=== PATIENT | female | born 1970 | race African-American/Black ===

== ENCOUNTER 2024-05-11 08:26 | Outpatient (AMB) | payer MEDICAID, SELFPAY ==
--- NOTE | 2024-05-11 08:38 | MHC.OFFWIV ---
Intake Vital Signs 05/11/24 08:41 Height 5 ft 3 in Weight 251 lb BMI 44.5 BP 132/80 Blood Pressure Location Lt brachial Position Sitting Pulse 63 Pulse Source Pulse Oximeter Pulse Oximetry (%) 98 Oxygen Delivery Method Room Air Intake Visit Reasons: EP rt leg pain Intake Note: Pt is here today c/o Rt under foot pain x3days no injury noted Allergies No Known Allergies Allergy (Verified 05/11/24 08:41) HPI HPI Comments History of Present Illness Details Patient is a 54-year-old female complaining of right heel pain that started 3 days ago. She denies any injury. She said she has been taking 200 mg of ibuprofen every 4 hours with no relief. She states she can walk on it but it is difficult because it is painful. She states she does not have any new shoes that she is wearing, she denies walking on the beach recently or walking excessively in shoes with no support such as flip flops. She has not tried ice or tried wrapping it. Review of Systems Const All systems reviewed & are unremarkable except as noted in HPI and below Physical Exam Vital Signs: Last Vital Signs Pulse 63 05/11/24 08:41 BP 132/80 05/11/24 08:41 Pulse Ox 98 05/11/24 08:41 Oxygen Delivery Method Room Air 05/11/24 08:41 BMI result Body Mass Index 44.5 Const General: cooperative, healthy appearing, comfortable, no acute distress and well developed Orientation/consciousness: patient oriented x3 Limitations: no limitations HEENT Head: Yes normal to inspection Eyes General: appearance normal, both eyes and all related structures Neck Neck: Yes normal visual inspection and Yes full ROM Resp Effort & Inspection: normal respiratory effort and able to speak in complete sentences Skin General skin exam: no rashes or lesions noted Neuro General: patient oriented x3 Extrem General: Yes normal to inspection Right lower extremity: normal to inspection, full ROM, normal capillary refill and foot (5/5 strength, sensation intact) Details: tenderness Location: of the calcaneus Details: with squeeze and of the mid foot Location: along the plantar surface; not of the base of the 5th metatarsal, toes with normal ROM and vascular exam Details: normal capillary refill; no unusual warmth, edema noted, no abrasion, no laceration and no ecchymosis; no edema and joint enlargement noted Left lower extremity: normal to inspection Assessment & Plan Assessment & Plan (1) Pain of right heel: Code(s): M79.671 - Pain in right foot Plan: Physical exam is unremarkable however patient has a limping gait and tenderness to the bottom of her right foot so we will get an x-ray to rule out a stress fracture. Wrapped right foot with an Tommy bandage, recommended RICE. Patient does not have a primary care doctor at this time. If pain does not improve, she should return for an ortho referral. Plan see above Orders: Orders XR foot RT min 3V Today M79.671 - Pain in right foot Coding Level of Care Code Est Pt Level 4 (98841) Diagnoses Pain of right heel M79.671
[2024-05-11 08:41] VITALS: BP 132/80; PULSE 63; O2SAT 98; BMI 44.5
== END 2024-05-11 10:06 | disposition home or self-care (01) ==
PROVIDERS: Visit Provider Physician Assistant
DX: M79.671 Pain in right foot (principal)
CPT/HCPCS: 99214

== ENCOUNTER 2024-05-11 09:17 | Outpatient (REF) | payer MEDICAID, SELFPAY ==
--- NOTE | ~2024-05-11 | XR_ITS ---
EXAMINATION: XR FOOT, RIGHT CLINICAL INFORMATION: Pain COMPARISON: None available. TECHNIQUE: AP, lateral, and oblique views of the right foot. FINDINGS: There is a healing nondisplaced fracture of the proximal phalanx of the fourth toe. No acute fracture or dislocation. Bone alignment is normal. Joint spaces are normal. There are small calcaneal spurs. There is soft tissue calcification over the medial lower leg. XR/XR foot RT min 3V IMPRESSION: Healing right fourth proximal phalanx fracture. Calcaneal spurs.
== END 2024-05-11 09:18 | disposition home or self-care (01) ==
LOC: HO.HMGCX 09:17
PROVIDERS: Visit Provider Physician Assistant
DX: M79.671 Pain in right foot (principal)
CPT/HCPCS: 73630

== ENCOUNTER → 2024-05-18 07:53 | Outpatient (BNVA) | payer MEDICAID, SELFPAY | PROVIDERS: Visit Provider Physician Assistant Surgical ==

== ENCOUNTER 2024-06-21 10:19 | Outpatient (AMB) | payer OTHER, SELFPAY ==
--- NOTE | 2024-06-21 09:57 | A.OFFVIS_ITS ---
VS Expanded 06/21/24 10:12 Height 5 ft 3 in Weight 255 lb BMI 45.2 Intake Visit Reasons: tele CLOTHES MODEL SWL BMI 43.6 Automotive Alignment Specialist Required: Yes Automotive Alignment Specialist Name: office cmi Allergies No Known Allergies Allergy (Verified 05/18/24 08:39) Medication List - Last Reconciled 06/21/24 by CALI Ruiz hydrochlorothiazide 12.5 mg PO DAILY lisinopril 10 mg PO DAILY HPI Comments Details: Pt is here to start the [facility] [place] Weight Management surgical weight loss program. She heard about our program from her daughter. Her goal is to lose weight and achieve a healthy lifestyle as well as to improve, if not resolve, obesity related medical conditions, including htn, gagan. She reports first being concerned about her weight 30 years, highest weight to date was 320. Current weight is 255 pounds with a BMI of 45.2. She has tried multiple methods of weight loss including fad diets without permanent results. She lives with her daughter. She does not work. She wakes at:?5 am, and goes to bed at?9 pm. Dinner is at 7 pm. Breakfast: egss ham bread AM snack: coffee and crackers or Rastafari bar Lunch: rice beans meat PM snack: coffee, bread Dinner: rice beans mashed potato meat After dinner: skip Other snacks: candy Liquids: 48 oz water, 24 oz coke daily, 8 oz apple juice Alcohol/marijuana/tobacco intake: no etoh, cannabis. Smokes 2 cigarettes daily Exercise: walk outside daily GERD score: 18 OSCAR score: 2 ESS score: 17 QOL score: 143 PFSH Surgical History Hx of tubal ligation Family History Family/Other No problems noted. Social History Alcohol intake: current Alcohol intake frequency: holidays/special occasions only Patient Tobacco Use Status: Current everyday Tobacco user Cigarettes Per Day: 4 Physical Exam Vital Signs: BMI result Body Mass Index 45.2 Telehealth Telehealth Telehealth Platform: Telephone Location of provider rendering services: practice address Location of patient: address on file Patient Identification confirmed using: Name, : Yes Telehealth method: voice only Patient verbally consented to treatment: Yes Patient verbally consented to billing insurance company: Yes Patient informed of any privacy concerns related to visit: Yes Minutes spent on Phone/Video with Pt.: 30 Assessment & Plan Assessment & Plan (1) Morbid obesity: Code(s): E66.01 - Morbid (severe) obesity due to excess calories Category: Medical Plan: This is a?54 yo female who will start our SWL program to prepare for bariatric surgery.? Blood work, CXR, ECG, Abd US and UGI have been ordered. She is being scheduled for initial consultations. She will start SWL classes and watch the first three videos before her next appointment. ? Based on getting up at 5 am and going to bed at 9 pm. ? Purchase body composition analyzer scale (Jack Robieo recommended) and check weight weekly. The best time to do this is first thing in the morning after going to the bathroom. 1. Nutritional counseling: Be sure to careful read the number of scoops per shake Start with 2 Pure protein shakes (Use the protein powder not the one in the carton already made), (1/2 scoop in 8 oz unsweetened almond milk) at 6am-8am, 10am-12pm 1 protein bar ([employer] bars at [facility] [place] [employer] shop, [employer], [employer]) at 2pm-4pm. Dinner at 6pm (8 forks of protein and 8 forks of salad/vegetables). Meal to include lean meat (beef, fish, pork, turkey, chicken), cooked vegetables or a salad with olive oil and/or fruits (berries, pears, apples, kiwi). Avoid salt, breads, potatoes, rice, pasta, desserts. Another shake with 1/2 scoop in 8 oz unsweetened almond milk at 7pm-9pm. Try to drink 64 oz of water daily and avoid soda and juices. ?2. Each shake would be drunk slowly, like coffee in a period of 2 hours. ?3. Cut each bar in 4 pieces and eat each piece in 30 min ?to make each bar last 2 hours. ?4. I emphasized the importance of measuring accurately the food portion and measure it carefully when serving the food on the plate ?5. The meal portions include 8 full-size forks of meat and 8 full-size forks of salad. You always eat the meat portion but you can replace up to half of the forks of salad/vegetables with rice, potatoes or pasta, or a fruit ?if you like. The less you do it the better weight loss will be. ?6. One full-size fork is what can be scooped on the fork without falling aside and not what can be bit with the fork. Use regular forks like those you find in a typical restaurant. ?7.? Please send me weight measurements as soon as possible and then once a week. Always include your diet and exercise plan. Alternatively come weekly at the office for weight checks and send me the measurements. ?8. Exercise counseling: Begin by watching a stretching for beginners video. Start slowly and begin to stretch your muscles. You should do this before and after each exercise session to prevent injury. Please join [employer] gym near your home. Ask the resident care manager rn or one of the trainers how to use the machines if you are unfamiliar with them. Start elliptical with a resistance of 2. Increase resistance by 1 every 3 min to your most comfortable resistance with a max resistance of 8. Reduce the resistance by 1 every 3 minutes back down to 2 and repeat cycles for 300 calories. Alternatively, start treadmill with a speed of 3.0 and incline of 0, increasing incline by 1 every 3 minutes to the highest comfortable level (max 6 for now) then decrease in the same fashion. Repeat pr ocess to a goal of 300 calories. Goal of 2000 calories burned or more weekly. You may also consider use of the stationary bike. The easiest would be to chose the fat-burn or interval training program on the machine and do this until you reach the 300 calorie goal. Alternatively, you can manually adjust the resistance in a similar fashion as mentioned above, (resistance of 2-8 with a goal speed of 12 mph). Tracking calories is essential. 9. Alternatively start walking outside daily, tracking calories with a goal of 300 calories per day, daily. You can download the [employer] which can track your time, distance and calories while walking outside. You press start in the ankita when you start and then stop when you are finished. 10.? It is important to communicate by text weekly with your weight and if you are having any problems with the plans. 11. Please get labs, EKG and chest X-Ray within 1 week. 12. Please follow the diet plan exactly, without any change. If you do not like something about the plan or you feel hungry, you need to communicate with me so I can help you revise the plan. You should not change the plan yourself. Text me at [phone] 13. Goal is to lose at least 12 pounds in the first month 14. Goal is to lose 10% of your weight before surgery, which is about 25 lbs. Ultimate weight goal: 230 lbs before surgery Patient is morbidly obese and is not considered stable at this time.?I spent a total of 70 minutes reviewing/updating records, examining the patient and counseling the patient on weight management as detailed above. Orders: Orders Hemoglobin A1c Today E66.01 - Morbid (severe) obesity due to excess calories, G47.33 - Obstructive sleep apnea (adult) (pediatric), I10 - Essential (primary) hypertension H Pylori Breath Test Today E66.01 - Morbid (severe) obesity due to excess calories, G47.33 - Obstructive sleep apnea (adult) (pediatric), I10 - Essential (primary) hypertension Comprehensive Met. Panel Today E66.01 - Morbid (severe) obesity due to excess calories, G47.33 - Obstructive sleep apnea (adult) (pediatric), I10 - Essential (primary) hypertension C Reactive Protein Today E66.01 - Morbid (severe) obesity due to excess calories, G47.33 - Obstructive sleep apnea (adult) (pediatric), I10 - Essential (primary) hypertension Vitamin A Today E66.01 - Morbid (severe) obesity due to excess calories, G47.33 - Obstructive sleep apnea (adult) (pediatric), I10 - Essential (primary) hypertension Ferritin Today E66.01 - Morbid (severe) obesity due to excess calories, G47.33 - Obstructive sleep apnea (adult) (pediatric), I10 - Essential (primary) hypertension US abdomen comp w elastography Today E66.01 - Morbid (severe) obesity due to excess calories, G47.33 - Obstructive sleep apnea (adult) (pediatric), I10 - Essential (primary) hypertension FL upper GI w air Today E66.01 - Morbid (severe) obesity due to excess calories, G47.33 - Obstructive sleep apnea (adult) (pediatric), I10 - Essential (primary) hypertension Insulin Today E66.01 - Morbid (severe) obesity due to excess calories, G47.33 - Obstructive sleep apnea (adult) (pediatric), I10 - Essential (primary) hypertension Complete Blood Count Auto Diff Today E66.01 - Morbid (severe) obesity due to excess calories, G47.33 - Obstructive sleep apnea (adult) (pediatric), I10 - Essential (primary) hypertension Lipid Panel Today E66.01 - Morbid (severe) obesity due to excess calories, G47.33 - Obstructive sleep apnea (adult) (pediatric), I10 - Essential (primary) hypertension IRON PROFILE Today E66.01 - Morbid (severe) obesity due to excess calories, G47.33 - Obstructive sleep apnea (adult) (pediatric), I10 - Essential (primary) hypertension Vitamin B12 and Folate Today E66.01 - Morbid (severe) obesity due to excess calories, G47.33 - Obstructive sleep apnea (adult) (pediatric), I10 - Essential (primary) hypertension Zinc Today E66.01 - Morbid (severe) obesity due to excess calories, G47.33 - Obstructive sleep apnea (adult) (pediatric), I10 - Essential (primary) hypertension Vitamin B1 Today E66.01 - Morbid (severe) obesity due to excess calories, G47.33 - Obstructive sleep apnea (adult) (pediatric), I10 - Essential (primary) hypertension TSH reflex Free T4 Today E66.01 - Morbid (severe) obesity due to excess calories, G47.33 - Obstructive sleep apnea (adult) (pediatric), I10 - Essential (primary) hypertension Vitamin D 25-OH Total Today E66.01 - Morbid (severe) obesity due to excess calories, G47.33 - Obstructive sleep apnea (adult) (pediatric), I10 - Essential (primary) hypertension XR chest 2V Today E66.01 - Morbid (severe) obesity due to excess calories, G47.33 - Obstructive sleep apnea (adult) (pediatric), I10 - Essential (primary) hypertension ECG 12 lead EKG Today E66.01 - Morbid (severe) obesity due to excess calories, G47.33 - Obstructive sleep apnea (adult) (pediatric), I10 - Essential (primary) hypertension Referrals Behavioral Health Referral E66.01 - Morbid (severe) obesity due to excess calories, G47.33 - Obstructive sleep apnea (adult) (pediatric), I10 - Essential (primary) hypertension
[2024-06-21 10:12] VITALS: BMI 45.2
== END 2024-06-21 11:00 | disposition home or self-care (01) ==
LOC: HO.HBS 10:19
PROVIDERS: Visit Provider Physician Assistant Surgical
DX: E66.01 Morbid (severe) obesity due to excess calories (principal); Z68.42 Body mass index [BMI] 45.0-49.9, adult
CPT/HCPCS: 99205

== ENCOUNTER → 2024-06-21 10:19 | Outpatient (BNVA) | payer OTHER, SELFPAY | PROVIDERS: Visit Provider Physician Assistant Surgical | DX: E66.01 Morbid (severe) obesity due to excess calories (principal); Z68.42 Body mass index [BMI] 45.0-49.9, adult | CPT/HCPCS: 99202 ==

== ENCOUNTER 2024-07-06 08:20 | Outpatient (REF) | payer OTHER, SELFPAY ==
[2024-07-06 08:42] LABS: MANUAL DIFF FLAG NO
[2024-07-06 08:56] LABS: Basophils Percent Auto 0.6 % (0-2); Eosinophils Absolute Auto 0.5 X10*3/uL (0.0-0.4); Eosinophils Percent Auto 7.9 % (0-4); Hematocrit 39.7 % (37.0-47.0); Hemoglobin 13.9 g/dl (12.0-16.0); Imm Gran Abs Auto 0.01 X10*3/uL (0.00-0.03); Imm Gran Pct Auto 0.2 % (0.0-0.4); Lymphocytes Absolute Auto 3.2 X10*3/uL (1.2-4.9); Lymphocytes Percent Auto 47.9 % (20-40); Mean Corpuscular Hemoglobin 31.1 pg (27.0-33.0); Mean Corpuscular Volume 88.8 fL (80.0-98.0); Mean Platelet Volume 10.1 fL (9.4-12.3); Monocytes Absolute Auto 0.4 X10*3/uL (0.1-1.2); Monocytes Percent Auto 6.6 % (2-11); Neutrophils Absolute Auto 2.4 x10*3/uL (2.0-8.3); Neutrophils Percent Auto 36.8 % (45-73); Platelet Count 218 X10*3/uL (160-400); Red Blood Count 4.47 X10*6/uL (4.20-5.50); Red Cell Distribution Width 11.9 % (11.0-16.0); White Blood Count 6.6 X10*3/uL (4.8-10.8)
[2024-07-06 09:26] LABS: Estimated Average Glucose 111 mg/dL; Hemoglobin A1c % 5.5 % (<6.0)
[2024-07-06 09:51] LABS: Alanine Aminotransferase 12 U/L (0-31); Albumin Level 3.7 g/dL (3.5-5.0); Alkaline Phosphatase 47 U/L (39-117); Anion Gap 8 (12-20); Aspartate Amino Transferase 15 U/L (5-31); Bilirubin Total 0.6 mg/dL (0.0-1.0); Blood Urea Nitrogen 19 mg/dL (9-16); Calcium 9.7 mg/dL (8.4-10.2); Carbon Dioxide 30 mmol/L (22-29); Chloride 109 mmol/L (96-108); Cholesterol 177 mg/dL (<200); Estimated Glomerular Filt Rate > 60; Glucose Random 103 mg/dL (60-115); HDL Cholesterol 53 mg/dL (>40); Iron 143 mcg/dL (30-160); LDL Cholesterol Calculated 112 mg/dL (<100); Percent Iron Saturation 56 % (15-50); Potassium 4.3 mmol/L (3.3-5.1); Sodium 143 mmol/L (135-145); Total Iron Binding Capacity 254 mcg/dL (228-428); Total Protein 6.5 g/dL (6.5-8.0); Triglycerides 60 mg/dL (<150); Unsaturated Iron Binding 111 ug/dL
[2024-07-06 10:13] LABS: Folate 10.4 ng/mL (> or = 4.0); Vitamin B12 490 pg/mL (200-900)
[2024-07-06 10:24] LABS: Ferritin 143 ng/mL (10-250); TSH reflex Free T4 1.32 uIU/mL (0.32-4.0); Vitamin D 25-OH Total 31.1 ng/mL (>30)
[2024-07-06 10:48] LABS: Insulin 10 uU/mL (2-29)
[2024-07-10 00:53] LABS: Zinc 77 mcg/dL (60-130)
[2024-07-12 02:18] LABS: Vitamin A 37 mcg/dL (38-98)
[2024-07-13 06:28] LABS: Vitamin B1 10 nmol/L (8-30)
== END 2024-07-06 08:21 | disposition home or self-care (01) ==
LOC: HO.LAB 08:20
PROVIDERS: Visit Provider Physician Assistant Surgical
DX: G47.33 Obstructive sleep apnea (adult) (pediatric) (principal); E66.01 Morbid (severe) obesity due to excess calories; I10 Essential (primary) hypertension
CPT/HCPCS: 36415; 80053; 80061; 82306; 82607; 82728; 82746; 83036; 83525; 83540; 84425; 84443; 84590; 84630; 85025; 86140

== ENCOUNTER 2024-07-09 08:04 | Outpatient (REF) | payer OTHER, SELFPAY ==
--- NOTE | ~2024-07-09 | XR_ITS ---
EXAMINATION: XR CHEST, 2 VIEWS CLINICAL INFORMATION: Obstructive sleep apnea. COMPARISON: None. TECHNIQUE: PA and lateral views of the chest were obtained. FINDINGS: Lungs are clear. No consolidation, pneumothorax, or pleural effusion. Cardiac and mediastinal contours are normal. Pulmonary vasculature is unremarkable. Trachea is midline. Degenerative disc disease is present in the thoracic spine. No acute osseous findings. XR/XR chest 2V IMPRESSION: No acute cardiopulmonary findings. Electronically signed by: Miguel Patel MD 07/30/2024 07:39 PM EDT
--- NOTE | 2024-07-09 08:16 | ECG_ITS ---
Test Reason : FRANKLIN Blood Pressure : / mmHG Vent. Rate : 052 BPM Atrial Rate : 052 BPM P-R Int : 140 ms QRS Dur : 074 ms QT Int : 436 ms P-R-T Axes : 064 004 009 degrees QTc Int : 405 ms Sinus bradycardia Otherwise normal ECG No previous ECGs available Referred By: Joshua Garibay Electronically Signed By:ANDREW HERNANDEZ
== END 2024-07-09 08:05 | disposition home or self-care (01) ==
LOC: HO.XRAY 08:04
PROVIDERS: PCP Family Medicine; Visit Provider Physician Assistant Surgical
DX: E66.01 Morbid (severe) obesity due to excess calories (principal); G47.33 Obstructive sleep apnea (adult) (pediatric); I10 Essential (primary) hypertension
CPT/HCPCS: 71046; 93005

== ENCOUNTER → 2024-07-18 13:02 | Day surgery (SDC) | payer OTHER, SELFPAY ==
--- NOTE | 2024-07-13 14:33 | HO.ANESPROP2 ---
HPI - Anesthesia Eval Consult details Narrative: 54yo F for Upper Endoscopy PMFSH Active Problems Active Problems: All Active Problems HTN (hypertension) (Acute) Morbid obesity (Acute) FRANKLIN (obstructive sleep apnea) (Acute) Pain of right heel (Acute) Past Medical History Medical History (Updated 07/13/24 @ 14:33 by Gill Dominguez NP) HTN (hypertension) Morbid obesity FRANKLIN (obstructive sleep apnea) Family History Family History Family/Other No problems noted. Surgical History Surgical History Hx of tubal ligation Social History Social History Alcohol intake: current Alcohol intake frequency: holidays/special occasions only Patient Tobacco Use Status: Current everyday Tobacco user Cigarettes Per Day: 4 Meds Allergies Allergy/AdvReac Type Severity Reaction Status Date / Time No Known Allergies Allergy Verified 05/18/24 08:39 Home Medications ?Medication ?Instructions ?Recorded ?Confirmed ?Last Taken ?Type hydrochlorothiazide 12.5 mg tablet 12.5 mg PO DAILY 05/11/24 06/21/24 Unknown History lisinopril 10 mg tablet 10 mg PO DAILY 05/11/24 06/21/24 Unknown History Assessment and Plan Assessment Anesthesia Assessment: Chart Reviewed
== END ==
LOC: HO.SSS 13:04
PROVIDERS: PCP Family Medicine; Visit Provider Surgery
DX: E66.01 Morbid (severe) obesity due to excess calories (principal); Z53.29 Procedure and treatment not carried out because of patient's decision for other reasons; G47.33 Obstructive sleep apnea (adult) (pediatric); I10 Essential (primary) hypertension

== ENCOUNTER 2024-07-23 10:08 | Outpatient (AMB) | payer OTHER, SELFPAY ==
--- NOTE | 2024-07-23 10:10 | A.OFFVIS_ITS ---
VS Expanded 07/23/24 10:25 BP 156/81 H Blood Pressure Location Rt brachial Blood Pressure Position Sitting Pulse 61 Pulse Source Pulse Oximeter Temp 97.5 F Temperature Source Temporal Artery Scan Pulse Oximetry 99 Oxygen Delivery Method Room Air Height 5 ft 3 in Weight 255 lb BMI 45.2 Body Fat % 44.9 Body Fat Mass 114.4 Fat Free Mass 140.4 Visceral Fat Rating 15.0 Body Water % 39.3 Body Water Mass 100.0 Muscle Mass/Score 133.4 Basal Metabolic Rate/Score 1,968 Intake Visit Reasons: (OV) F/U SWL Manager Emergency Department Required: Yes Manager Emergency Department Name: #[id number] Allergies No Known Allergies Allergy (Verified 05/18/24 08:39) Medication List - Last Reconciled 07/23/24 by CALI Ruiz hydrochlorothiazide 12.5 mg PO DAILY lisinopril 10 mg PO DAILY vitamin A palmitate 3,000 mcg PO DAILY 90 days HPI Comments Details: 54-year-old female returns to the office today in follow-up. She is in our Surgical weight loss program. She started the program on 06/21/2024 with a weight of 255 lb and a BMI of 45.2. Weight today is 255 pounds and BMI of 45.2. She states she has had increased anxiety and eating more. States she is doing the meal plan, when asked exactly, unable to report. States didn't get the email. Meal plan: 2 Pure protein shakes, (1/2 scoop in 8 oz unsweetened almond milk) at 6am-8am, 10am-12pm 1 protein bar ([employer] bars) at 2pm-4pm. Dinner at 6pm (8 forks of protein and 8 forks of salad/vegetables). Another shake with 1/2 scoop in 8 oz unsweetened almond milk at 7pm-9pm. Exercise plan: [employer], treadmill, 5 days /week, 30 min 100-105 [facility] Medical History (Updated 07/23/24 @ 10:31 by CALI Ruiz) Morbid obesity HTN (hypertension) FRANKLIN (obstructive sleep apnea) Surgical History Hx of tubal ligation Family History Family/Other No problems noted. Social History Alcohol intake: current Alcohol intake frequency: holidays/special occasions only Patient Tobacco Use Status: Current everyday Tobacco user Cigarettes Per Day: 1 Physical Exam Const General: healthy appearing and no acute distress Resp Effort & Inspection: normal respiratory effort Auscultation: clear to auscultation bilaterally Cardio Rate: regular rate Rhythm: regular rhythm GI Auscultation: normal bowel sounds Extrem General: Yes normal to inspection Assessment & Plan Assessment & Plan (1) Morbid obesity: Code(s): E66.01 - Morbid (severe) obesity due to excess calories Category: Medical Plan: Able to identify barriers to her success including not following the plan. She did not receive the e-mail. This was now confirmed in the office. She was encouraged to follow the plan exactly. Encouraged to additionally increase exercise for a goal of 300 calories per day, 7 days per week or 2000 calories per week. Encouraged to text me her weight weekly. We will have her return to the office in approximately 4 weeks.
[2024-07-23 10:25] VITALS: BP 156/81; PULSE 61; TEMP 36.4; O2SAT 99; BMI 45.2
== END 2024-07-23 10:33 | disposition home or self-care (01) ==
LOC: HO.HBS 10:08
PROVIDERS: PCP Family Medicine; Visit Provider Physician Assistant Surgical
DX: E66.01 Morbid (severe) obesity due to excess calories (principal); Z68.42 Body mass index [BMI] 45.0-49.9, adult
CPT/HCPCS: 99213

== ENCOUNTER → 2024-07-23 10:08 | Outpatient (BNVA) | payer OTHER, SELFPAY | PROVIDERS: PCP Family Medicine; Visit Provider Physician Assistant Surgical | DX: E66.01 Morbid (severe) obesity due to excess calories (principal); Z71.3 Dietary counseling and surveillance; Z68.42 Body mass index [BMI] 45.0-49.9, adult | CPT/HCPCS: 99212 ==

== ENCOUNTER → 2024-08-13 09:10 | Outpatient (AMB) | payer OTHER, SELFPAY ==
--- NOTE | 2024-08-13 09:00 | MHC.WMTHER ---
Intake Intake Visit Reasons: (TV) BH Intake Allergies No Known Allergies Allergy (Verified 05/18/24 08:39) [facility] Medical History (Updated 07/23/24 @ 10:31 by CALI Ruiz) Morbid obesity HTN (hypertension) FRANKLIN (obstructive sleep apnea) Surgical History Hx of tubal ligation Family History Family/Other No problems noted. Social History Alcohol intake: current Alcohol intake frequency: holidays/special occasions only Patient Tobacco Use Status: Current everyday Tobacco user Cigarettes Per Day: 1 Behavioral Health Assessment Weight Management Therapy Therapy Notes Details PT is a 54 years old, , Mexican-speaking Female, who presents for initial visit to complete BH assessment as part of surgical weight loss program. PT in interested in weight-loss surgery due to obesity and ongoing eating issues, obesity, has high blood pressure and was recently diagnosed with type 2 diabetes and started oral medication; she is looking to become healthier, be active to keep up with her grandkids and being able to live a healthier and longer life. Presenting Concerns Referral Source WMP-Provider. PT sees MEENA and had initial ankita on 06/21/2024 Reason for referral Completion of behavioral health assessment as part of process for weight-loss surgery. Precipitating Event Obesity. Living Situation Current Living Situation Relative's/Guardian's Adrianne At risk of losing current housing? No Satisfied with current living situation? Yes Comments PT lives at her daughters home, with her daughter and family (son-in-law and 2 grandkids). Food/Weight/Diet Expectations of change Initial Goal is to lose at least 12 pounds in the first month, however patient did not lose anything as patient was not following meal plan until 2 days ago. a second goal is to lose 10% of her weight before surgery, which is about 25 lbs. Ultimate weight goal: 230 Lbs before surgery Patient goals are to get bariatric surgery and to be healthier. PT is implementing the following: Current meal plan: 2 shakes (@6am, @10am), 1 bar @2pm, 1 Meal 7ft/7ft @6pm and 1 shake @7pm. Exercise plan: Walking. History/Relationship with food Example of meals before starting the program: Breakfast: Lunch: Dinner: Snacks: Drinks/Liquids: History/Relationship with weight In the last 10 years, the patient's Lowest weight was and highest Social History Family history and relationship PT never . Has 2 adult daughters (they are 30 and 32) She had a stillborn child. She lives with her 32 y/o daughter and their family 4 years ago. She has 4 siblings and her parents are alive and they are in [place] but her daughters live in this area. PT reports she has really goof family dynamics Parental/Familial caretaker resort obligations None. Developmental history and status None reported Social support Daughter who had surgery at this program. Her mother, Community support Baptism community. Alevism/Spirituality Yarsanism. Attends tenriism 2 days at , Tue and Sundays. Cultural/Ethnic information PT was born and raised in [place]. She moved to [place] 4 years ago as most of her family is here. PT is Mexican-speaking only. Legal Involvement and History Current or historical involvement with the legal system? None reported. Education Highest grade completed Bachelors Degree. Preferred learning style Written and Visual Currently enrolled in educational program? No Interested in further educational program? Yes ([employer]) Educational Interests/Skills Degree in business administration. Employment Employment Status Unemployed (5 years ago. Would like to find a job but right now she helps her daughter with the grandkids. ) Wants help to find employment? No Meaningful activities Family activities, read, clean. Financial Situation Describe current financial situation Comfortable and Occasional struggle Financial assistance? Contributions from your family/friends Service Service? No Mental Health and Addiction Treatment Current/Past substance abuse? No Comments Alcohol: only on special dates, couple times at year. 2-4 times at year, 1-2 drinks. Cigarettes/Tobacco: Smokes cigarettes 2 at day. Cannabis/Edibles: None. Current/Past addictive behavior concerns? No Psychiatric history PT denies ever been in crisis or inpatient for mental health. There is no history and/or current concern about SI/SA and self-harm or other harm. Medical and Physical Health Summary Additional Medical History not covered in history High blood pressure, pre-diabetes per most recent ankita with PCP couple weeks ago. Sexual History concerns None reported Physical exam in the last year? Yes Pain Screening Current pain? No Pain in the last few months? Yes Comments Back pain due to herniated discs and left leg pain. Medications Is the patient compliant with medications? Yes (New: Metformin 500mg) Does the patient have [place] Guardian in place? Not applicable Does the patient use complimentary health approaches? No Questionnaires PHQ-9 Over the last 2 weeks, how often have you been bothered by any of the following problems? 1. Little interest or pleasure in doing things: several days 2. Feeling down, depressed, or hopeless: not at all 3. Trouble falling or staying asleep, or sleeping too much: several days 4. Feeling tired or having little energy: several days 5. Poor appetite or overeating: more than half the days 6. Feeling bad about yourself - or that you are a failure or have let yourself or your family down: several days 7. Trouble concentrating on things, such as reading the newspaper or watching television: several days 8. Moving or speaking so slowly that other people could have noticed. Or the opposite - being so fidgety or restless that you have been moving around a lot more than usual: several days 9. Thoughts that you would be better off or of hurting yourself in some way: not at all Total score: 8 Depression Screening Interpretation: Positive (Scores from new PT pack. New PHQ-9 will de administered at next visit. ) Depression Screening Done: Yes Source: Developed by Drs. Manish Mcintyre, Sabine Stiles, Jesse Argueta and colleagues, with an educational colin from [employer]. Binge Eating Scale Group 1 A. I don't feel self-conscious about my wt. or body size when I'm with others. B. I feel concerned about how I look to others, but it normally does not make me fell disappointed with myself C. I do get self-conscious about my appearance and wt. which makes me feel disappointed in myself. D. I feel very self-conscious about my wt. and frequently I feel intense shame and disgust for myself. I try to avoid social contacts because of my self-consciousness. Response Group 1: C Group 2 A. I don't have any difficulty eating slowly in the proper manner. B. Although I seem to gobble down foods, I don't end up feeling stuffed because of eating to much. C. At times, I tend to eat quickly and then, I feel uncomfortably full afterwards. D. I have the habit of bolting down my food, without really chewing it. When this happens I usually feel uncomfortably stuffed because I've eaten to much. Response Group 2: D Group 3 A. I feel capable to control my eating urges when I want to. B. I feel like I have failed to control my eating more than the average person. C. I feel utterly helpless when it comes to feeling in control of my eating urges. D. Because I feel so helpless about controlling my eating I have become very desperate about trying to get control. Response Group 3: D Group 4 A. I don't have the habit of eating when I'm bored. B. I sometimes eat when I'm bored, but often I'm able to get busy and get my mind off food. C. I have a regular habit of eating when I'm bored, but occasionally, I can use some other activity to get my mind off eating. D. I have a strong habit of eating when I'm bored. Nothing seems to help me breath the habit. Response Group 4: D Group 5 A. I'm usually physically hungry when I eat something. B. Occasionally, I eat something on impulse even though I really am not hungry. C. I have the regular habit of eating foods, that I might not really enjoy, to satisfy a hungry feeling even though physically, I don't need the food. D. Although I'm not physically hungry, I get a hungry feeling in my mouth that only seems to be satisfied when I eat a food, like sandwich, that fills my mouth. Sometimes, when I eat the food to satisfy my mouth hunger, I then spit the food out so I won't gain weight. Response Group 5: C Group 6 A. I don't feel any guilt or self-hate after I overeat. B. After I overeat, occasionally I feel guilt or self-hate. C. Almost all the time I experience strong guilt or self-hate after I overeat. Response Group 6: C Group 7 A. I don't lose total control of my eating when dieting even after periods when I overeat. B. Sometimes when I eat a forbidden food on a diet, I feel like I blew it and eat even more. C. Frequently, I have the habit of saying to myself, I've blown it now, why not go all the way, when I overeat on a diet. When that happens I eat more. D. I have a regular habit of starting a strict diets for myself but I break the diets by going on an eating binge. My life seems to be either a feast or famine. Response Group 7: D Group 8 A. I rarely eat so much food that I feel uncomfortably stuffed afterwards. B. Usually about once a month, I each such a quantity of food, I end up feeling very stuffed. C. I have regular periods during the month when I eat large amounts of food, either at mealtime or at snacks. D. I eat so much food that I regularly feel quite uncomfortable after eating and sometimes a bit nauseous. Response Group 8: D Group 9 A. My level of calorie intake does not go up very high or go down very low on a regular basis. B. Sometimes after I overeat, I will try to reduce my caloric intake to almost nothing to compensate for the excess calories I've eaten. C. I have a regular habit of overeating during the night. It seems that my routine is not to be hungry in the morning but overeat in the evening. D. In my adult years, I have had week-long periods where I practically starve myself. This follows periods when I overeat. It seems I live a life of either feast or famine. Response Group 9: D Group 10 A. I usually am able to stop eating when I want to. I know when enough is enough. B. Every so often, I experience a compulsion to eat which I can't seem to control. C. Frequently, I experience strong urges to eat which I seem unable to control, but at other times I can control my eating urges. D. I feel incapable of controlling urges to eat. I have a fear of not being able to stop eating voluntarily. Response Group 10: C Group 11 A. I don't have any problem stopping eating when I feel full. B. I usually can stop eating when I feel full but occasionally overeat leaving me feeling uncomfortably stuffed. C. I have a problem stopping eating once I start and usually I feel uncomfortably stuffed after I eat a meal. D. Because I have a problem not being able to stop eating when I want, I sometimes have to induce vomiting to relieve my stuffed feeling. Response Group 11: C Group 12 A. I seem to eat just as much when I'm with others, Family social gatherings as when I'm by myself. B. Sometimes, when I'm with other persons, I don't eat as much as I want to eat because I'm self-conscious about my eating. C. Frequently, I eat only a small amount of food when others are present, because I'm very embarrassed about my eating. D. I feel so ashamed about overeating that I pick times to overeat when I know no one will see me. I feel like a closet eater. Response Group 12: D Group 13 A. I eat three meals a day with only an occasional between meal snack. B. I eat 3 meals a day, but I also normally snack between meals. C. When I am snacking heavily, I get in the habit of skipping regular meals. D. There are regular periods when I seem to be continually eating, with no planned meals. Response Group 13: D Group 14 A. I don't think much about trying to control unwanted eating urges. B. At least some of the time, I feel my thoughts are pre-occupied with trying to control my eating urges. C. I feel that frequently I spend much time thinking about how much I ate or about trying not to eat anymore. D. It seems to me that most of my waking hours are pre-occupied by thoughts about eating or not eating. I feel like I'm constantly struggling not to eat. Response Group 14: D Group 15 A. I don't think about food a great deal. B. I have strong craving for food but they last only for brief periods of time. C. I have days when I can't seem to think about anything else but food. D. Most of my days seem to be pre-occupied with thoughts about food. I feel like I live to eat. Response Group 15: D Group 16 A. I usually know whether or not I'm physically hungry. I take the right portion of food to satisfy me. B. Occasionally, I feel uncertain about knowing whether or not I'm physically hungry. A these times it's hard to know how much food I should take to satisfy me. C. Even though I might know how many calories I should eat, I don't have any idea what is a normal amount of food for me. Response Group 16: C Binge Eating Score: 42 Score less than 17 Minimal Risk Score between 18-26 Moderate Risk Score between 27-46 High Risk Assessment & Plan Assessment & Plan (1) Eating disorder: Code(s): F50.9 - Eating disorder, unspecified Qualifiers: Eating disorder type: unspecified eating disorder Qualified Code(s): F50.9 - Eating disorder, unspecified (2) Morbid obesity: Code(s): E66.01 - Morbid (severe) obesity due to excess calories Plan PT not cleared today, we will meet again on 09/03/24 to complete assessment. PHQ-9 will be administered again and BES reviewed due to high scores. Telehealth Telehealth Telehealth [facility] Location of provider rendering services: other ([place] office, [place], [place]) Location of patient: address on file Patient Identification confirmed using: Name, : Yes Telehealth method: voice only Patient verbally consented to treatment: Yes Patient verbally consented to billing insurance company: Yes Patient informed of any privacy concerns related to visit: Yes Coding Level of Care Code New Pt Tele Psy Diag Paty ([id number]) Patient Type New Diagnoses Eating disorder, unspecified type F50.9 Eating disorder type: unspecified eating disorder Morbid obesity E66.01 Time Spent (min) 55 Comment Start time: 9:00am, End time: 9:55am
== END ==
PROVIDERS: PCP Family Medicine; Visit Provider Counselor Mental Health
DX: F50.9 Eating disorder, unspecified (principal); E66.01 Morbid (severe) obesity due to excess calories
CPT/HCPCS: 90791

== ENCOUNTER → 2024-08-13 09:10 | Outpatient (BNVA) | payer OTHER, SELFPAY | PROVIDERS: PCP Family Medicine; Visit Provider Counselor Mental Health ==

== ENCOUNTER 2024-09-03 08:32 | Outpatient (REF) | payer OTHER, SELFPAY ==
--- NOTE | ~2024-09-03 | FL_ITS ---
EXAMINATION: XR FLUOROSCOPY UPPER GI WITH AIR CLINICAL INFORMATION: Preoperative evaluation prior to bariatric surgery COMPARISON: None TECHNIQUE: Fluoroscopic air contrast upper GI examination was performed utilizing standard techniques with thin and thick barium and effervescent granules. Numerous spot images were obtained. FINDINGS: Dual and single contrast images of the esophagus demonstrate normal caliber, contour, and mucosal pattern. No evidence of stricture, mass, or ulcerations identified. Esophageal peristalsis was mildly disordered. No evidence of hiatus hernia identified. No significant gastroesophageal reflux was seen during the course of the examination and on reflux views. Dual contrast and single contrast images of the stomach demonstrated normal contour and mucosal pattern without evidence of mass, ulceration, or other abnormality. Contrast freely passed into the gastric antrum and duodenal bulb without delay. Single and air-contrast images of the duodenal bulb demonstrate no abnormality. The duodenal sweep has a normal appearance, course, and mucosal fold appearance. The imaged proximal jejunum has a normal fold pattern and caliber. FLUOROSCOPY TIME: 3 minutes 18 seconds Number of Spot Images: 6 Number of Cine: 12 DOSE AREA PRODUCT: 2454 uGy-m2 (microgray-meter squared) FL/FL upper GI w air IMPRESSION: 1. Mildly disordered esophageal peristalsis. Otherwise normal upper GI series This procedure was performed by Brett Franklin PA-C, and supervised by Dr. Brady Electronically signed by: Miguel Brady MD 09/03/2024 01:25 PM EDT
== END 2024-09-03 08:33 | disposition home or self-care (01) ==
LOC: HO.XRAY 08:32
PROVIDERS: PCP Family Medicine; Visit Provider Physician Assistant Surgical
DX: E66.01 Morbid (severe) obesity due to excess calories (principal); G47.33 Obstructive sleep apnea (adult) (pediatric); I10 Essential (primary) hypertension
CPT/HCPCS: 74246

== ENCOUNTER → 2024-09-03 08:33 | Outpatient (BNV) | payer OTHER, SELFPAY | PROVIDERS: PCP Family Medicine; Visit Provider Radiology Diagnostic Radiology | DX: Z01.818 Encounter for other preprocedural examination (principal) | CPT/HCPCS: 74246 ==

== ENCOUNTER → 2024-09-03 09:10 | Outpatient (AMB) | payer OTHER, SELFPAY ==
--- NOTE | 2024-09-03 09:00 | MHC.WMTHER ---
Intake Intake Visit Reasons: VIDEO F/U Allergies No Known Allergies Allergy (Verified 09/06/24 11:10) FOR[facility] Medical History Morbid obesity HTN (hypertension) FRANKLIN (obstructive sleep apnea) Surgical History Hx of tubal ligation Family History Family/Other No problems noted. Social History Are you a primary prompt care rn to a significant other at home: No Do you presently have visiting nurse or other home services: No Alcohol intake: current Alcohol intake frequency: holidays/special occasions only Patient Tobacco Use Status: Current everyday Tobacco user Tobacco use type: Cigarette Cigarettes Per Day: 1 Behavioral Health Assessment Weight Management Therapy Therapy Notes Details PT is a 54 years old, , Canadian-speaking Female, who presents for initial visit to complete assessment as part of surgical weight loss program. PT in interested in weight-loss surgery due to obesity and ongoing eating issues, obesity, has high blood pressure and was recently diagnosed with type 2 diabetes and started oral medication; she is looking to become healthier, be active to keep up with her grandkids and being able to live a healthier and longer life. PT disclosed challenges being consistent with expectations around meal/exercise plan due to multiple life circumstances. Presenting Concerns Referral Source WMP-Provider. PT sees MEENA and had initial ankita on 06/21/2024 Reason for referral Completion of behavioral health assessment as part of process for weight-loss surgery. Precipitating Event Obesity. Living Situation Current Living Situation Relative's/Guardian's Adrianne At risk of losing current housing? No Satisfied with current living situation? Yes Comments PT lives at her daughters home, with her daughter and family (son-in-law and 2 grandkids). Food/Weight/Diet Expectations of change Initial Goal was to lose at least 12 pounds in the first month, however patient did not lose anything as patient was not following meal plan. A second goal is to lose 10% of her weight before surgery, which is about 25 lbs. Ultimate weight goal: 230 Lbs before surgery Most recent weight:254Lbs. Patient goals are to get bariatric surgery and to be healthier. PT is implementing the following: Current meal plan: 2 shakes (@6am, @10am), 1 bar @2pm, 1 Meal 7ft/7ft @6pm and 1 shake @7pm. Exercise plan: Walking. PT reports she has not been following meal plan due to multiple life challenges History/Relationship with food PT reports her appetite increases when she's under stress, however she doesn't engage in using food as a reward if have a great day or to boost her mood. She believes she has a hard time controlling her portions and/or having small portions and the choices she makes when in a greene, for example, she rather so a quick order of fried chicken at [facility] than a salad from another place. Other times she would skip meals and then was often overeating in between dinner and bedtime. Example of meals before starting the program: Breakfast: eggs with ham and 1 toast of bread. Am snack: a protein bar Lunch: Salad with meat PM snack: a protein bar Dinner: Rice, with beans, avocado and meat. Dessert: None. Drinks/Liquids: 2-3 cups of coffee with cream, 1-2 cups of tea at day (chamomile/agnes/[place]). Pt reports she went to see a nutrition faculty member back in 2022 after she started Semaglutide in 2021. She was able to lose 90Lbs in less than a year, and has been modifying her diet since then, following a portion-control method the nutrition faculty member advised. She stopped drinking soda 2 years ago. she enjoys juice but tires not to drink them. In 2013 she dedicated take care of a grandchild who was severely ill, after he passed a way in 2021 her weight and food habits were out of control. History/Relationship with weight PT reports she has always been overweight or chunky. In high school she was skinnier and at a healthy weight. She had her first child at 19 and did not gained as much with this , but with her 3rd she recalls had gain substantial weight. On her 30's she was already over 200Lbs, and in general she doesn't remember being under 190Lbs as an adult. In the last 10 years, the patient's Lowest weight was 246LS this year in November and highest 340Lbs in 2019. History/Relationship with dieting Ketto, teas, weight watchers, gallo duque, Jose D, weight-loss center in [place], Semaglutide treatment in 2021 and was able to lose 90Lbs. Binge Eating Do you frequently eat large amounts of food in short periods of time, not feeling physically hungry? Yes Do you feel out of control when you eat a large amount of food in a short period of time? Yes Do you eat large amounts of food rapidly and typically alone? No Night Eating Do you wake up at least once during the night to eat? No If you wake up in the night, do you find that it is necessary to eat something in order to fall back asleep? No Do you have little or no appetite in the morning and feel very hungry in the evening, often overeating between dinner and when you go to bed? No Social History Family history and relationship PT never . Has 2 adult daughters (they are 30 and 32) She had a stillborn child. She lives with her 32 y/o daughter and their family 4 years ago. She has 4 siblings and her parents are alive and they are in [place] but her daughters live in this area. PT reports she has really goof family dynamics Parental/Familial retail salesperson obligations None. Developmental history and status None reported Social support Daughter who had surgery at this program. Her mother, Community support L[employer] community. Muslim/Spirituality Denominational. Attends scientologist 2 days at , Tue and Sundays. Cultural/Ethnic information PT was born and raised in [place]. She moved to [place] 4 years ago as most of her family is here. PT is Canadian-speaking only. Legal Involvement and History Current or historical involvement with the legal system? None reported. Education Highest grade completed Bachelors Degree. Preferred learning style Written and Visual Currently enrolled in educational program? No Interested in further educational program? Yes (Turkish classess) Educational Interests/Skills Degree in business administration. Employment Employment Status Unemployed (5 years ago. Would like to find a job but right now she helps her daughter with the grandkids. ) Wants help to find employment? No Meaningful activities Family activities, read, clean. Financial Situation Describe current financial situation Comfortable and Occasional struggle Financial assistance? Contributions from your family/friends Service Service? No Mental Health and Addiction Treatment Current/Past substance abuse? No Comments Alcohol: only on special dates, couple times at year. 2-4 times at year, 1-2 drinks. Cigarettes/Tobacco: Smokes cigarettes 2 at day. Cannabis/Edibles: None. Current/Past addictive behavior concerns? No Psychiatric history PT denies ever been in crisis or inpatient for mental health. There is no history and/or current concern about SI/SA and self-harm or other harm. Medical and Physical Health Summary Additional Medical History not covered in history High blood pressure, pre-diabetes per most recent ankita with PCP couple weeks ago. Sexual History concerns None reported Physical exam in the last year? Yes Pain Screening Current pain? No Pain in the last few months? Yes Comments Back pain due to herniated discs and left leg pain. Medications Is the patient compliant with medications? Yes (New: Metformin 500mg) Does the patient have [place] Guardian in place? Not applicable Does the patient use complimentary health approaches? No Questionnaires PHQ-9 Over the last 2 weeks, how often have you been bothered by any of the following problems? 1. Little interest or pleasure in doing things: not at all 2. Feeling down, depressed, or hopeless: not at all 3. Trouble falling or staying asleep, or sleeping too much: not at all 4. Feeling tired or having little energy: not at all 5. Poor appetite or overeating: several days 6. Feeling bad about yourself - or that you are a failure or have let yourself or your family down: several days 7. Trouble concentrating on things, such as reading the newspaper or watching television: not at all 8. Moving or speaking so slowly that other people could have noticed. Or the opposite - being so fidgety or restless that you have been moving around a lot more than usual: not at all 9. Thoughts that you would be better off or of hurting yourself in some way: not at all Total score: 2 Depression Screening Interpretation: Negative Depression Screening Done: Yes 25132 - PHQ-9 Billing: Yes Source: Developed by Drs. Manish Mcintyre, Sabine Stiles, Jesse Argueta and colleagues, with an educational colin from [employer]. Binge Eating Scale Group 1 A. I don't feel self-conscious about my wt. or body size when I'm with others. B. I feel concerned about how I look to others, but it normally does not make me fell disappointed with myself C. I do get self-conscious about my appearance and wt. which makes me feel disappointed in myself. D. I feel very self-conscious about my wt. and frequently I feel intense shame and disgust for myself. I try to avoid social contacts because of my self-consciousness. Response Group 1: C Group 2 A. I don't have any difficulty eating slowly in the proper manner. B. Although I seem to gobble down foods, I don't end up feeling stuffed because of eating to much. C. At times, I tend to eat quickly and then, I feel uncomfortably full afterwards. D. I have the habit of bolting down my food, without really chewing it. When this happens I usually feel uncomfortably stuffed because I've eaten to much. Response Group 2: D Group 3 A. I feel capable to control my eating urges when I want to. B. I feel like I have failed to control my eating more than the average person. C. I feel utterly helpless when it comes to feeling in control of my eating urges. D. Because I feel so helpless about controlling my eating I have become very desperate about trying to get control. Response Group 3: D Group 4 A. I don't have the habit of eating when I'm bored. B. I sometimes eat when I'm bored, but often I'm able to get busy and get my mind off food. C. I have a regular habit of eating when I'm bored, but occasionally, I can use some other activity to get my mind off eating. D. I have a strong habit of eating when I'm bored. Nothing seems to help me breath the habit. Response Group 4: D Group 5 A. I'm usually physically hungry when I eat something. B. Occasionally, I eat something on impulse even though I really am not hungry. C. I have the regular habit of eating foods, that I might not really enjoy, to satisfy a hungry feeling even though physically, I don't need the food. D. Although I'm not physically hungry, I get a hungry feeling in my mouth that only seems to be satisfied when I eat a food, like sandwich, that fills my mouth. Sometimes, when I eat the food to satisfy my mouth hunger, I then spit the food out so I won't gain weight. Response Group 5: C Group 6 A. I don't feel any guilt or self-hate after I overeat. B. After I overeat, occasionally I feel guilt or self-hate. C. Almost all the time I experience strong guilt or self-hate after I overeat. Response Group 6: C Group 7 A. I don't lose total control of my eating when dieting even after periods when I overeat. B. Sometimes when I eat a forbidden food on a diet, I feel like I blew it and eat even more. C. Frequently, I have the habit of saying to myself, I've blown it now, why not go all the way, when I overeat on a diet. When that happens I eat more. D. I have a regular habit of starting a strict diets for myself but I break the diets by going on an eating binge. My life seems to be either a feast or famine. Response Group 7: D Group 8 A. I rarely eat so much food that I feel uncomfortably stuffed afterwards. B. Usually about once a month, I each such a quantity of food, I end up feeling very stuffed. C. I have regular periods during the month when I eat large amounts of food, either at mealtime or at snacks. D. I eat so much food that I regularly feel quite uncomfortable after eating and sometimes a bit nauseous. Response Group 8: D Group 9 A. My level of calorie intake does not go up very high or go down very low on a regular basis. B. Sometimes after I overeat, I will try to reduce my caloric intake to almost nothing to compensate for the excess calories I've eaten. C. I have a regular habit of overeating during the night. It seems that my routine is not to be hungry in the morning but overeat in the evening. D. In my adult years, I have had week-long periods where I practically starve myself. This follows periods when I overeat. It seems I live a life of either feast or famine. Response Group 9: D Group 10 A. I usually am able to stop eating when I want to. I know when enough is enough. B. Every so often, I experience a compulsion to eat which I can't seem to control. C. Frequently, I experience strong urges to eat which I seem unable to control, but at other times I can control my eating urges. D. I feel incapable of controlling urges to eat. I have a fear of not being able to stop eating voluntarily. Response Group 10: C Group 11 A. I don't have any problem stopping eating when I feel full. B. I usually can stop eating when I feel full but occasionally overeat leaving me feeling uncomfortably stuffed. C. I have a problem stopping eating once I start and usually I feel uncomfortably stuffed after I eat a meal. D. Because I have a problem not being able to stop eating when I want, I sometimes have to induce vomiting to relieve my stuffed feeling. Response Group 11: C Group 12 A. I seem to eat just as much when I'm with others, Family social gatherings as when I'm by myself. B. Sometimes, when I'm with other persons, I don't eat as much as I want to eat because I'm self-conscious about my eating. C. Frequently, I eat only a small amount of food when others are present, because I'm very embarrassed about my eating. D. I feel so ashamed about overeating that I pick times to overeat when I know no one will see me. I feel like a closet eater. Response Group 12: D Group 13 A. I eat three meals a day with only an occasional between meal snack. B. I eat 3 meals a day, but I also normally snack between meals. C. When I am snacking heavily, I get in the habit of skipping regular meals. D. There are regular periods when I seem to be continually eating, with no planned meals. Response Group 13: D Group 14 A. I don't think much about trying to control unwanted eating urges. B. At least some of the time, I feel my thoughts are pre-occupied with trying to control my eating urges. C. I feel that frequently I spend much time thinking about how much I ate or about trying not to eat anymore. D. It seems to me that most of my waking hours are pre-occupied by thoughts about eating or not eating. I feel like I'm constantly struggling not to eat. Response Group 14: D Group 15 A. I don't think about food a great deal. B. I have strong craving for food but they last only for brief periods of time. C. I have days when I can't seem to think about anything else but food. D. Most of my days seem to be pre-occupied with thoughts about food. I feel like I live to eat. Response Group 15: D Group 16 A. I usually know whether or not I'm physically hungry. I take the right portion of food to satisfy me. B. Occasionally, I feel uncertain about knowing whether or not I'm physically hungry. A these times it's hard to know how much food I should take to satisfy me. C. Even though I might know how many calories I should eat, I don't have any idea what is a normal amount of food for me. Response Group 16: C Binge Eating Score: 42 Score less than 17 Minimal Risk Score between 18-26 Moderate Risk Score between 27-46 High Risk Assessment & Plan Assessment & Plan (1) Morbid obesity: Code(s): E66.01 - Morbid (severe) obesity due to excess calories (2) Adjustment disorder, unspecified: Code(s): F43.20 - Adjustment disorder, unspecified Plan Not cleared. PT will be seen 1 more time to review BES due to high scores and support client with strategies for habit building and to continue commitment with program expectations for a successful weight-loss journey. Next ankita: 09/24/24 at 8am, Telehealth. Telehealth Telehealth Telehealth Platform: [facility] Location of provider rendering services: practice address Location of patient: other Patient Identification confirmed using: Name, : Yes Telehealth method: voice only Patient verbally consented to treatment: Yes Patient verbally consented to billing insurance company: Yes Patient informed of any privacy concerns related to visit: Yes Minutes spent on Phone/Video with Pt.: 45 Coding Level of Care Code Established Pt Tele Psytx 45 mins (30293) Patient Type Established Diagnoses Morbid obesity E66.01 Adjustment disorder, unspecified F43.20 Time Spent (min) 45
== END ==
PROVIDERS: PCP Family Medicine; Visit Provider Counselor Mental Health
DX: E66.01 Morbid (severe) obesity due to excess calories (principal); F43.20 Adjustment disorder, unspecified
CPT/HCPCS: 90834

== ENCOUNTER 2024-09-06 09:45 | Day surgery (SDC) | payer OTHER, SELFPAY ==
--- NOTE | 2024-09-04 08:33 | HO.ANESPROP2 ---
Documented by User: Gill Dominguez NP 09/04/24 08:33 HPI - Anesthesia Eval Consult details Narrative: 54yo F for Upper Endoscopy PMFSH Active Problems Active Problems: All Active Problems Morbid obesity (Acute) Pain of right heel (Acute) Past Medical History Medical History Morbid obesity HTN (hypertension) FRANKLIN (obstructive sleep apnea) Family History Family History Family/Other No problems noted. Surgical History Surgical History Hx of tubal ligation Social History Social History Are you a primary wound care center consultant to a significant other at home: No Do you presently have visiting nurse or other home services: No Alcohol intake: current Alcohol intake frequency: holidays/special occasions only Patient Tobacco Use Status: Current everyday Tobacco user Tobacco use type: Cigarette Cigarettes Per Day: 1 Smoked in Last 30 Days: Yes Patient Interested in Nicotine Replacement: No Have you been hit, kicked, punched, or otherwise hurt by someone within the past year? If so, by whom?: No Are you DNR?: No Advance Directives: No Advance Directives Information Provided: Yes Recently lost weight without trying: No Nutrition Risks: No Nutritional Risk Meds Allergies Allergy/AdvReac Type Severity Reaction Status Date / Time No Known Allergies Allergy Verified 09/06/24 11:10 Home Medications ?Medication ?Instructions ?Recorded ?Confirmed ?Last Taken ?Type hydrochlorothiazide 12.5 mg tablet 12.5 mg PO DAILY 05/11/24 09/06/24 Unknown History lisinopril 10 mg tablet 10 mg PO DAILY 05/11/24 09/06/24 Unknown History Exam Narrative Narrative: EKG 06/2024 Vent. Rate : 052 BPM Atrial Rate : 052 BPM P-R Int : 140 ms QRS Dur : 074 ms QT Int : 436 ms P-R-T Axes : 064 004 009 degrees QTc Int : 405 ms Sinus bradycardia Otherwise normal ECG No previous ECGs available Assessment and Plan Assessment Anesthesia Assessment: Chart Reviewed Documented by User: Alison Carney MD 09/06/24 11:40 PMFSH Past Medical History Medical History Morbid obesity HTN (hypertension) FRANKLIN (obstructive sleep apnea) Family History Family History Family/Other No problems noted. Family history of problems with anesthesia: No Surgical History Surgical History Hx of tubal ligation History of Problems with Anesthesia: No Social History Social History Are you a primary wound care center consultant to a significant other at home: No Do you presently have visiting nurse or other home services: No Alcohol intake: current Alcohol intake frequency: holidays/special occasions only Patient Tobacco Use Status: Current everyday Tobacco user Tobacco use type: Cigarette Cigarettes Per Day: 1 Smoked in Last 30 Days: Yes Patient Interested in Nicotine Replacement: No Have you been hit, kicked, punched, or otherwise hurt by someone within the past year? If so, by whom?: No Are you DNR?: No Advance Directives: No Advance Directives Information Provided: Yes Recently lost weight without trying: No Nutrition Risks: No Nutritional Risk Meds Allergies Allergy/AdvReac Type Severity Reaction Status Date / Time No Known Allergies Allergy Verified 09/06/24 11:10 Home Medications ?Medication ?Instructions ?Recorded ?Confirmed ?Last Taken ?Type hydrochlorothiazide 12.5 mg tablet 12.5 mg PO DAILY 05/11/24 09/06/24 Unknown History lisinopril 10 mg tablet 10 mg PO DAILY 05/11/24 09/06/24 Unknown History Exam Airway Mallampati Class: II TM Dist: >3cm Neck ROM: Full Heart: rrr Lungs: cta Assessment and Plan Assessment Anesthesia Assessment: Anesthesia Plan Discussed Final Anesthetic Review Family History of Problems with Anesthesia: No History of Problems with Anesthesia: No NPO: Yes ASA Class: III Final Preanesthetic Review: No Changes in Pt Med Stat, Meds/Allgs Chart Reviewed, Consent Obtained/Reviewed and Anes Risks/Benef Reviewed Patient Risk: Intermediate Procedure Risk: Low Anesthetic Plan Anesthetic Plan: MAC: Disposition: Standard PACU
[2024-09-06] MEDS: Lactated Ringers 1,000 ML 80 ML IVCONT (11:21)
[2024-09-06 11:32] VITALS: BP 130/69; PULSE 60; RESP 18; TEMP 36.7; O2SAT 99
[2024-09-06 11:33] VITALS: BMI 45.2
--- NOTE | 2024-09-06 12:19 | MHC.SHP ---
Pre-Procedural Eval Section A - 24 Hr Update-Section A only Date of Service: 09/06/24 The patient is an INPATIENT: No The patient has been examined within 24 hours of the surgical procedure. The History & Physical has been completed within 30 days and I have reviewed it.: Yes Section B - Complete if H&P > 30 days Chief Complaint: Morbid (severe) obesity due to excess calories Details of Present Illness: GERD Relevant Family History (Specify if Yes): No Relevant Social History: None Present Medications: None Medical History: No relevant PMH History of Previous Operations: No relevant previous surgery Allergies: Allergies Allergy/AdvReac Type Severity Reaction Status Date / Time No Known Allergies Allergy Verified 09/06/24 11:10 Review of Systems Sugical H&P ROS: Negative: Constitution, Cardiovascular, Respiratory, Neurological, Psychiatric, Hem-Onc, Allergic/Immunologic, Gastrointestinal, Genitourinary, Musculoskeletal, Integumentary, Endocrine and Eyes/Ears/Nose/Throat Exam Surgical H&P Exam: Normal: HEENT, Normal: Heart, Normal: Lungs, Normal: Extremities, Normal: Abdomen, Normal: Skin and Normal: Neurological Plan Diagnosis/Plan: Unchanged (EGD to assess etiology of GERD. Risks of bleeding and perforation were discussed with the patient and she is in agreement with the plan.) I have reviewed the history and physical and performed a pertinent physical examination on my patient. No changes have occurred unless specified. Time Spent With Patient Time: Total time managing care of this patient today ____ minutes.
--- NOTE | 2024-09-06 12:20 | PM.OP ---
Brief Operative Note Date of Service: 09/06/24 Pre-op diagnosis: GERD Post-op diagnosis: same (& small hiatal hernia) Procedure: PROCEDURE DATE: 09/06/2024 PREOPERATIVE DIAGNOSIS: GERD POSTOPERATIVE DIAGNOSIS: ?Same as above. 1) small hiatal hernia PROCEDURE: Gblapddx-[id number] with biopsies Surgeon: ?Wero Delaney M.D.. Ph.D. Area Supervisor: None ? Anesthesia: IV sedation Estimated blood loss: ?Minimal FINDINGS AND PROCEDURE: ? OPERATIVE INDICATIONS: ?The patient is a 54 year old female known to me who is interested in bariatric surgery. The patient has GERD. Based on this information I recommended an upper endoscopy to evaluate the patient's symptoms. Risks and complications of the surgery were discussed with the patient in advance particularly the possibility of perforation or bleeding that may require surgical intervention. The patient understood the risks and was in agreement with the plan. ? PROCEDURE: After informed consent was obtained by the patient, the patient was ?transferred to the Operating Room and was placed in the supine position.? After successful induction of IV sedation, a mouth block was inserted and the patient was placed in the left lateral decubitus position. An upper endoscopy was performed next, the oropharynx and esophagus appeared within the normal limits. There was a small 2-3cm hiatal hernia. The z-line was smooth. Two biopsies were obtained from the distal esophagus 2-3 cm proximal to the GE junction and two additional biopsies from the GE junction. The stomach was entered and it appeared to be of normal size. There was no gastritis. There was no stricture or ulcer. A biopsy was obtained from the gastric fundus and the antrum. No significant bleeding was noted from any of the biopsy sites. Retroflexion of the scope confirned the presence of a small diaphragmatic hernia. The scope was then advanced into the duodenum which appeared to be normal as well. At that point the duodenum ?and the stomach were decompressed and the scope was withdrawn from the patient's mouth. The patient extubated and was transferred in stable condition to the Recovery Room for further care. I was present and performed all steps of the procedure. There were no residents to assist with this case. Wero Delaney M.D., Ph.D. Surgeon: Dc Delaney MD Anesthesia: MAC Was an Area Supervisor used for this Procedure?: No Estimated blood loss (mL): 10 IV fluids (mL): 400 Urine output (mL): 0 (No Dumont to record output) Pathology: other (1) antrum x1, 2) fundus x1, 3) GE junction x2, 4) distal esophagus x2) Condition: stable Disposition: PACU
[2024-09-06 12:59] VITALS: BP 117/50; PULSE 81; RESP 20; TEMP 36.3; O2SAT 98
[2024-09-06 13:14] VITALS: BP 105/55; PULSE 65; RESP 20; TEMP 36.3; O2SAT 100
== END 2024-09-06 13:48 | disposition home or self-care (01) ==
PROVIDERS: PCP Family Medicine; Visit Provider Surgery
PROC: 0DJ08ZZ Inspection of Upper Intestinal Tract, Via Natural or Artificial Opening Endoscopic (ICD-10-PCS; CPT 43235; principal; 2024-09-06 11:40)
DX: K21.9 Gastro-esophageal reflux disease without esophagitis (principal); E66.01 Morbid (severe) obesity due to excess calories; Z68.42 Body mass index [BMI] 45.0-49.9, adult; K44.9 Diaphragmatic hernia without obstruction or gangrene; I10 Essential (primary) hypertension; G47.33 Obstructive sleep apnea (adult) (pediatric); Z99.89 Dependence on other enabling machines and devices; Z79.899 Other long term (current) drug therapy; Z98.51 Tubal ligation status; F17.210 Nicotine dependence, cigarettes, uncomplicated
CPT/HCPCS: 43239; 88305; 88313; 88342; J1596; J2704

== ENCOUNTER → 2024-09-06 09:45 | Outpatient (BNV) | payer OTHER, SELFPAY | PROVIDERS: PCP Family Medicine; Visit Provider Surgery | DX: K44.9 Diaphragmatic hernia without obstruction or gangrene (principal) | CPT/HCPCS: 43239 ==

== ENCOUNTER 2024-09-07 13:56 | Outpatient (AMB) | payer OTHER, SELFPAY ==
--- NOTE | 2024-09-07 13:57 | A.OFFVIS_ITS ---
VS Expanded 09/07/24 14:10 BP 135/80 Blood Pressure Location Rt brachial Blood Pressure Position Sitting Pulse 76 Pulse Source Pulse Oximeter Temp 98.1 F Temperature Source Temporal Artery Scan Pulse Oximetry 98 Oxygen Delivery Method Room Air Height 5 ft 3 in Weight 254 lb 6.4 oz BMI 45.1 Body Fat % 44.6 Body Fat Mass 113.4 Fat Free Mass 140.8 Visceral Fat Rating 15.0 Body Water % 39.5 Body Water Mass 100.4 Muscle Mass/Score 133.8 Basal Metabolic Rate/Score 1,972 Intake Visit Reasons: (OV) F/U SWL Building Rental Manager Required: Yes Building Rental Manager Services: Building Rental Manager Present Building Rental Manager Name: hospital cmi Allergies No Known Allergies Allergy (Verified 09/07/24 14:04) Medication List - Last Reconciled 09/07/24 by CALI Ruiz hydrochlorothiazide 12.5 mg PO DAILY lisinopril 10 mg PO DAILY vitamin A palmitate 3,000 mcg PO DAILY 90 days HPI Comments Details: 54-year-old female returns to the office today in follow-up. She is in our Surgical weight loss program. She started the program on 06/21/2024 with a weight of 255 lb and a BMI of 45.2. Weight today is 254.4 pounds and BMI of 45.1. She has lost 0.6 lb or 0.2% total body weight loss since starting the program. She states she has had increased anxiety and eating more. States she is doing the meal plan, when asked exactly, unable to report. States didn't get the email. She states she has not been following the meal plan and didn't open the link. She was in [place] with her sick father. She was using 1 scoop 2 x per day, 2 bars per day, 6-7 forks protein and veg, cracker after dinner. Drinking shakes over 15 min Meal plan: 2 Pure protein shakes, (1/2 scoop in 8 oz unsweetened almond milk) at 6am-8am, 10am-12pm 1 protein bar (Celebrate bars) at 2pm-4pm. Dinner at 6pm (8 forks of protein and 8 forks of salad/vegetables). Another shake with 1/2 scoop in 8 oz unsweetened almond milk at 7pm-9pm. Exercise plan: [employer], treadmill, 5 days /week, 180-200 remigio stationary bike, 170 remigio PFSH Medical History Morbid obesity HTN (hypertension) [place] (obstructive sleep apnea) Surgical History Hx of bladder endoscopy Hx of tubal ligation Family History Family/Other No problems noted. Social History (Updated 09/07/24 @ 14:05 by Luana Chang CMA) Are you a primary care coordinator to a significant other at home: No Do you presently have visiting nurse or other home services: No Alcohol intake: current Alcohol intake frequency: holidays/special occasions only Patient Tobacco Use Status: Current everyday Tobacco user Tobacco use type: Cigarette Cigarettes Per Day: 2 Physical Exam Const General: healthy appearing and no acute distress Resp Effort & Inspection: normal respiratory effort Auscultation: clear to auscultation bilaterally Cardio Rate: regular rate Rhythm: regular rhythm GI Auscultation: normal bowel sounds Extrem General: Yes normal to inspection Assessment & Plan Assessment & Plan (1) Morbid obesity: Code(s): E66.01 - Morbid (severe) obesity due to excess calories Category: Medical Plan: Discussed with the patient the importance of following the meal plan exactly. I had given this to her on a hand written note which she was able to understand. Discussed the importance of following it exactly including the time it takes to drink the shakes and eat the bar. We also discussed the importance of exercise with a goal of burning 400 calories per day, 5 days per week at the gym. Two hundred or 250 calories burned on the treadmill and 200-250 calories burned on the stationary bike. We will have her return to the office in 1 month. Ad ditionally, discussed the importance of texting weekly with her weight is and with any questions or concerns
[2024-09-07 14:10] VITALS: BP 135/80; PULSE 76; TEMP 36.7; O2SAT 98; BMI 45.1
== END 2024-09-07 14:50 | disposition home or self-care (01) ==
PROVIDERS: PCP Family Medicine; Visit Provider Physician Assistant Surgical
DX: E66.813 Obesity, class 3 (principal); Z68.42 Body mass index [BMI] 45.0-49.9, adult
CPT/HCPCS: 99213; G2211

== ENCOUNTER → 2024-09-07 13:56 | Outpatient (BNVA) | payer OTHER, SELFPAY | PROVIDERS: PCP Family Medicine; Visit Provider Physician Assistant Surgical | DX: E66.01 Morbid (severe) obesity due to excess calories (principal); Z68.42 Body mass index [BMI] 45.0-49.9, adult | CPT/HCPCS: 99212 ==

== ENCOUNTER 2024-09-24 08:35 | Outpatient (AMB) | payer OTHER, SELFPAY ==
--- NOTE | 2024-09-24 08:05 | A.OFFWM_ITS ---
Intake Intake Visit Reasons: VIDEO BH F/U Allergies No Known Allergies Allergy (Verified 09/07/24 14:04) [facility] Medical History Morbid obesity HTN (hypertension) FRANKLIN (obstructive sleep apnea) Surgical History Hx of bladder endoscopy Hx of tubal ligation Family History Family/Other No problems noted. Social History (Updated 09/07/24 @ 14:05 by Luana Chang CMA) Are you a primary home child care provider to a significant other at home: No Do you presently have visiting nurse or other home services: No Alcohol intake: current Alcohol intake frequency: holidays/special occasions only Patient Tobacco Use Status: Current everyday Tobacco user Tobacco use type: Cigarette Cigarettes Per Day: 2 Behavioral Health Assessment Weight Management Therapy Therapy Notes Details Subjective: PT reports she continues dealing with some stress levels and has not lose weight. She just bought the scale and will arrive today or tomorrow. Objective: PT Presents for a follow up visit via Telehealth. We discussed the functioning and outcomes from her recent visit with the [facility] provider. We reviewed her meal plan and exercise routine, reflecting on program expectations, commitment, and the barriers she faces in meeting her initial goals. We also talked about strategies for managing stress levels and focused on building healthy habits. Used CBT-based techniques as modality of intervention. Assessment/Response: * Mental status: WNL. Some stress is present, but functioning remains unimpeded. The patient is alert and oriented to person, place, and time. * Risk factors reported/identified: none. PHQ-9 was administered, showing no active symptoms of depression or emotional concerns. The patient is open, engaged, and responsive to interventions. Plan: The patient is cleared from a behavioral health perspective, as there are no significant emotional issues that would impact her or pose a contraindication for surgery. However, we will continue to meet on a monthly basis to support her with stress management and habit building. Presenting Concerns Referral Source [facility]-Provider. PT sees MEENA and had initial ankita on 06/21/2024 Reason for referral Completion of behavioral health assessment as part of process for weight-loss surgery. Precipitating Event Obesity. Living Situation Current Living Situation Relative's/Guardian's Adrianne At risk of losing current housing? No Satisfied with current living situation? Yes Comments PT lives at her daughters home, with her daughter and family (son-in-law and 2 grandkids). Food/Weight/Diet Expectations of change The initial Goal was to lose at least 12 pounds in the first month, however patient did not lose anything as patient was not following meal plan. A second goal is to lose 10% of her weight before surgery, which is about 25 lbs. Ultimate weight goal: 230 Lbs before surgery Most recent weight:254Lbs. The patient's goals are to get bariatric surgery and to be healthier. PT is implementing the following: Current meal plan: 2 shakes (@6am, @10am), 1 bar @2pm, 1 Meal 7ft/7ft @6pm and 1 shake @7pm. Exercise plan: Walking. PT reports she has not been following meal plan due to multiple life challenges History/Relationship with food PT reports her appetite increases when she's under stress, however she doesn't engage in using food as a reward if have a great day or to boost her mood. She believes she has a hard time controlling her portions and/or having small portions and the choices she makes when in a greene, for example, she rather so a quick order of fried chicken at [facility] than a salad from another place. Other times she would skip meals and then was often overeating in between dinner and bedtime. Example of meals before starting the program: Breakfast: eggs with ham and 1 toast of bread. Am snack: a protein bar Lunch: Salad with meat PM snack: a protein bar Dinner: Rice, with beans, avocado and meat. Dessert: None. Drinks/Liquids: 2-3 cups of coffee with cream, 1-2 cups of tea at day (chamomile/agnes/Wanda). Pt reports she went to see a pipeline dispatcher back in 2022 after she started Semaglutide in 2021. She was able to lose 90Lbs in less than a year, and has been modifying her diet since then, following a portion-control method the pipeline dispatcher advised. She stopped drinking soda 2 years ago. she enjoys juice but tires not to drink them. In 2013 she dedicated take care of a grandchild who was severely ill, after he passed a way in 2021 her weight and food habits were out of control. History/Relationship with weight PT reports she has always been overweight or chunky. In high school she was skinnier and at a healthy weight. She had her first child at 19 and did not gained as much with this , but with her 3rd she recalls had gain substantial weight. On her 30's she was already over 200Lbs, and in general she doesn't remember being under 190Lbs as an adult. In the last 10 years, the patient's Lowest weight was 246LS this year in November and highest 340Lbs in 2019. History/Relationship with dieting Thanh, michael, weight watchers, [facility], Jose D, weight-loss center in [place], Semaglutide treatment in 2021 and was able to lose 90Lbs. Binge Eating Do you frequently eat large amounts of food in short periods of time, not feeling physically hungry? Yes Do you feel out of control when you eat a large amount of food in a short period of time? Yes Do you eat large amounts of food rapidly and typically alone? No Night Eating Do you wake up at least once during the night to eat? No If you wake up in the night, do you find that it is necessary to eat something in order to fall back asleep? No Do you have little or no appetite in the morning and feel very hungry in the evening, often overeating between dinner and when you go to bed? No Social History Family history and relationship PT never . Has 2 adult daughters (they are 30 and 32) She had a stillborn child. She lives with her 32 y/o daughter and their family 4 years ago. She has 4 siblings and her parents are alive and they are in [place] but her daughters live in this area. PT reports she has really goof family dynamics Parental/Familial sole rounder obligations None. Developmental history and status None reported Social support Daughter who had surgery at this program. Her mother, Community support Denominational community. Yazdanism/Spirituality Rastafari. Attends restoration 2 days at , Tue and Sundays. Cultural/Ethnic information PT was born and raised in [place]. She moved to [place] 4 years ago as most of her family is here. PT is Kiswahili-speaking only. Legal Involvement and History Current or historical involvement with the legal system? None reported. Education Highest grade completed Bachelors Degree. Preferred learning style Written and Visual Currently enrolled in educational program? No Interested in further educational program? Yes (Italian classes) Educational Interests/Skills Degree in business administration. Employment Employment Status Unemployed (5 years ago. Would like to find a job but right now she helps her daughter with the grandkids. ) Wants help to find employment? No Meaningful activities Family activities, read, clean. Financial Situation Describe current financial situation Comfortable and Occasional struggle Financial assistance? Contributions from your family/friends Service Service? No Mental Health and Addiction Treatment Current/Past substance abuse? No Comments Alcohol: only on special dates, couple times at year. 2-4 times at year, 1-2 drinks. Cigarettes/Tobacco: Smokes cigarettes 2 at day/ Tried cutting it off cold turkey ad was unable. Cannabis/Edibles: None. Cofee: 4 cups at day/ Working on decrease to 1 cup at day and has been having headaches. Current/Past addictive behavior concerns? No Psychiatric history PT denies ever been in crisis or inpatient for mental health. There is no history and/or current concern about SI/SA and self-harm or other harm. Medical and Physical Health Summary Additional Medical History not covered in history High blood pressure, pre- diabetes per most recent ankita with PCP couple weeks ago. Sexual History concerns None reported Physical exam in the last year? Yes Pain Screening Current pain? No Pain in the last few months? Yes Comments Back pain due to herniated discs and left leg pain. Medications Is the patient compliant with medications? Yes (New: Metformin 500mg) Does the patient have [place] Guardian in place? Not applicable Does the patient use complimentary health approaches? No Questionnaires PHQ-9 Over the last 2 weeks, how often have you been bothered by any of the following problems? 1. Little interest or pleasure in doing things: not at all 2. Feeling down, depressed, or hopeless: not at all 3. Trouble falling or staying asleep, or sleeping too much: not at all 4. Feeling tired or having little energy: not at all 5. Poor appetite or overeating: several days (more appetite, but eating normally) 6. Feeling bad about yourself - or that you are a failure or have let yourself or your family down: not at all 7. Trouble concentrating on things, such as reading the newspaper or watching television: not at all 8. Moving or speaking so slowly that other people could have noticed. Or the opposite - being so fidgety or restless that you have been moving around a lot more than usual: several days 9. Thoughts that you would be better off or of hurting yourself in some way: not at all Total score: 2 Depression Screening Interpretation: Negative Depression Screening Done: Yes 34138 - PHQ-9 Billing: Yes Source: Developed by Drs. Manish Mcintyre, Sabine Stiles, Jesse Argueta and colleagues, with an educational colin from [employer]. Binge Eating Scale Group 1 A. I don't feel self-conscious about my wt. or body size when I'm with others. B. I feel concerned about how I look to others, but it normally does not make me fell disappointed with myself C. I do get self-conscious about my appearance and wt. which makes me feel disappointed in myself. D. I feel very self-conscious about my wt. and frequently I feel intense shame and disgust for myself. I try to avoid social contacts because of my self- consciousness. Response Group 1: B (c before) Group 2 A. I don't have any difficulty eating slowly in the proper manner. B. Although I seem to gobble down foods, I don't end up feeling stuffed because of eating to much. C. At times, I tend to eat quickly and then, I feel uncomfortably full afterwards. D. I have the habit of bolting down my food, without really chewing it. When this happens I usually feel uncomfortably stuffed because I've eaten to much. Response Group 2: C (D before) Group 3 A. I feel capable to control my eating urges when I want to. B. I feel like I have failed to control my eating more than the average person. C. I feel utterly helpless when it comes to feeling in control of my eating urges. D. Because I feel so helpless about controlling my eating I have become very de sperate about trying to get control. Response Group 3: A (D before) Group 4 A. I don't have the habit of eating when I'm bored. B. I sometimes eat when I'm bored, but often I'm able to get busy and get my mind off food. C. I have a regular habit of eating when I'm bored, but occasionally, I can use some other activity to get my mind off eating. D. I have a strong habit of eating when I'm bored. Nothing seems to help me breath the habit. Response Group 4: C (D before) Group 5 A. I'm usually physically hungry when I eat something. B. Occasionally, I eat something on impulse even though I really am not hungry. C. I have the regular habit of eating foods, that I might not really enjoy, to satisfy a hungry feeling even though physically, I don't need the food. D. Although I'm not physically hungry, I get a hungry feeling in my mouth that only seems to be satisfied when I eat a food, like sandwich, that fills my mouth. Sometimes, when I eat the food to satisfy my mouth hunger, I then spit the food out so I won't gain weight. Response Group 5: A (C before) Group 6 A. I don't feel any guilt or self-hate after I overeat. B. After I overeat, occasionally I feel guilt or self-hate. C. Almost all the time I experience strong guilt or self-hate after I overeat. Response Group 6: B (C before) Group 7 A. I don't lose total control of my eating when dieting even after periods when I overeat. B. Sometimes when I eat a forbidden food on a diet, I feel like I blew it and eat even more. C. Frequently, I have the habit of saying to myself, I've blown it now, why not go all the way, when I overeat on a diet. When that happens I eat more. D. I have a regular habit of starting a strict diets for myself but I break the diets by going on an eating binge. My life seems to be either a feast or famine. Response Group 7: A (D before) Group 8 A. I rarely eat so much food that I feel uncomfortably stuffed afterwards. B. Usually about once a month, I each such a quantity of food, I end up feeling very stuffed. C. I have regular periods during the month when I eat large amounts of food, either at mealtime or at snacks. D. I eat so much food that I regularly feel quite uncomfortable after eating and sometimes a bit nauseous. Response Group 8: C (D before) Group 9 A. My level of calorie intake does not go up very high or go down very low on a regular basis. B. Sometimes after I overeat, I will try to reduce my caloric intake to almost nothing to compensate for the excess calories I've eaten. C. I have a regular habit of overeating during the night. It seems that my routine is not to be hungry in the morning but overeat in the evening. D. In my adult years, I have had week-long periods where I practically starve myself. This follows periods when I overeat. It seems I live a life of either feast or famine. Response Group 9: B (D before) Group 10 A. I usually am able to stop eating when I want to. I know when enough is enough. B. Every so often, I experience a compulsion to eat which I can't seem to control. C. Frequently, I experience strong urges to eat which I seem unable to control, but at other times I can control my eating urges. D. I feel incapable of controlling urges to eat. I have a fear of not being able to stop eating voluntarily. Response Group 10: C (Same as before) Group 11 A. I don't have any problem stopping eating when I feel full. B. I usually can stop eating when I feel full but occasionally overeat leaving me feeling uncomfortably stuffed. C. I have a problem stopping eating once I start and usually I feel uncomfortably stuffed after I eat a meal. D. Because I have a problem not being able to stop eating when I want, I sometimes have to induce vomiting to relieve my stuffed feeling. Response Group 11: A (C before) Group 12 A. I seem to eat just as much when I'm with others, Family social gatherings as when I'm by myself. B. Sometimes, when I'm with other persons, I don't eat as much as I want to eat because I'm self-conscious about my eating. C. Frequently, I eat only a small amount of food when others are present, because I'm very embarrassed about my eating. D. I feel so ashamed about overeating that I pick times to overeat when I know no one will see me. I feel like a closet eater. Response Group 12: A (D before) Group 13 A. I eat three meals a day with only an occasional between meal snack. B. I eat 3 meals a day, but I also normally snack between meals. C. When I am snacking heavily, I get in the habit of skipping regular meals. D. There are regular periods when I seem to be continually eating, with no planned meals. Response Group 13: B (D before) Group 14 A. I don't think much about trying to control unwanted eating urges. B. At least some of the time, I feel my thoughts are pre-occupied with trying to control my eating urges. C. I feel that frequently I spend much time thinking about how much I ate or about trying not to eat anymore. D. It seems to me that most of my waking hours are pre-occupied by thoughts about eating or not eating. I feel like I'm constantly struggling not to eat. Response Group 14: B (D before) Group 15 A. I don't think about food a great deal. B. I have strong craving for food but they last only for brief periods of time. C. I have days when I can't seem to think about anything else but food. D. Most of my days seem to be pre-occupied with thoughts about food. I feel like I live to eat. Response Group 15: B (D before ) Group 16 A. I usually know whether or not I'm physically hungry. I take the right portion of food to satisfy me. B. Occasionally, I feel uncertain about knowing whether or not I'm physically hungry. A these times it's hard to know how much food I should take to satisfy me. C. Even though I might know how many calories I should eat, I don't have any idea what is a normal amount of food for me. Response Group 16: C (Same as before ) Binge Eating Score: 16 (Previous Scores: 42.) Score less than 17 Minimal Risk Score between 18-26 Moderate Risk Score between 27-46 High Risk Assessment & Plan Assessment & Plan (1) Morbid obesity: Code(s): E66.01 - Morbid (severe) obesity due to excess calories (2) Adjustment disorder, unspecified: Code(s): F43.20 - Adjustment disorder, unspecified Plan * The patient was advised to discuss smoking cessation options with her primary care provider (PCP). * She has been reminded of the importance of texting [facility]-provider weekly with updates on her measurements, as well as her meal and exercise plan. * The patient will be seen again in four weeks for support, as she still needs to work on certain behaviors that would help her adopt a healthier lifestyle. She has been cleared from a behavioral health standpoint; however, she will also need to have a follow-up appointment after her surgery. Next ankita: 10/22/2024 at 8am, Phone call Telehealth Telehealth Telehealth Platform: [employer] Location of provider rendering services: other Location of patient: other Patient Identification confirmed using: Name, : Yes Telehealth method: voice only Patient verbally consented to treatment: Yes Patient verbally consented to billing insurance company: Yes Patient informed of any privacy concerns related to visit: Yes Minutes spent on Phone/Video with Pt.: 55 Coding Level of Care Code Established Pt Tele Psytx >53 mins (45554) Patient Type Established Diagnoses Morbid obesity E66.01 Adjustment disorder, unspecified F43.20 Additional Codes PHQ-9 - 20766 - PHQ-9 Billing: Yes ([id number]) Time Spent (min) 55
== END 2024-09-25 08:17 | disposition home or self-care (01) ==
LOC: HO.HBST 08:35
PROVIDERS: PCP Family Medicine; Visit Provider Counselor Mental Health
DX: E66.01 Morbid (severe) obesity due to excess calories (principal); F43.20 Adjustment disorder, unspecified
CPT/HCPCS: 90837